=== PATIENT | female | born 1970 | race Asian ===

== ENCOUNTER → 2017-12-30 10:55 | Outpatient (CLI) | payer BC, SELFPAY ==
[2017-12-30 11:16] LABS: Bacteria Urine None Seen
[2017-12-30 12:14] LABS: Add Manual Diff / Slide Review NO; Basophils Percent Auto 0.8 % (0-2); Hematocrit 38.1 % (36-46); Hemoglobin 12.8 g/dL (12.0-16.0); Lymphocytes Percent Auto 31.2 % (25-40); Mean Corpuscular HGB Conc 33.7 % (30-36); Mean Corpuscular Hemoglobin 30.5 PG (26-34); Mean Corpuscular Volume 90.5 fL (80-100); Monocytes Percent Auto 7.4 % (3-14); Neutrophils Absolute Auto 3600 /uL (3000-5900); Neutrophils Percent Auto 59.6 % (50-75); Platelet Count 248 X10^3/uL (150-400); Red Blood Cell Count 4.21 X10^6/uL (4.0-5.2); Red Cell Distribution Width 13.2 % (11.6-14.8); White Blood Cell Count 6.1 X10^3/uL (4.5-11.0)
[2017-12-30 12:27] LABS: Appearance Urine UA CLEAR; Bilirubin Urine UA NEGATIVE (NEGATIVE); Color Urine UA YELLOW; Glucose Urine UA NEGATIVE (Normal); Ketones Urine UA NEGATIVE (NEGATIVE); Leukocyte Esterase Urine UA NEGATIVE (NEGATIVE); Nitrite Urine UA Negative (Negative); Occult Blood Urine UA 3+ (Negative); Protein Urine UA NEGATIVE (Negative); Specific Gravity Urine UA 1.015 (1.000-1.035); Urobilinogen Urine UA 0.2 E.U./dL (0.2); pH Urine UA 7.5 (4.5-8.0)
[2017-12-30 12:43] LABS: Culture Indicated Urine Cult Not Indicated; RBC Urine 5-10/HPF (0-5/HPF); WBC Urine 0-1/HPF (0-5/HPF)
[2017-12-30 12:57] LABS: Alanine Aminotransferase 21 IU/L (9-52); Albumin 4.1 g/dL (3.5-5.0); Albumin Globulin Ratio 1.6 (1.0-2.8); Alkaline Phosphatase 46 U/L (38-126); Aspartate Aminotransferase 19 IU/L (14-36); Bilirubin Total 0.4 mg/dL (0.2-1.3); Blood Urea Nitrogen 9 mg/dL (7-17); Calcium 9.3 mg/dL (8.4-10.2); Carbon Dioxide 29 mmol/L (22-32); Chloride 102 mmol/L (98-107); Cholesterol 167 mg/dL (140-199); Estimated Glomerular Filt Rate > 60.0 mL/min (>60); Globulin 2.6 g/dL (1.7-4.1); Glucose 90 mg/dL (70-100); HDL Cholesterol 64 mg/dL (40-60); HEMOLYSIS < 15 (0-50); LDL Cholesterol Calculated 82 mg/dL (<100); Potassium 4.4 mmol/L (3.4-5.1); Sodium 142 mmol/L (137-145); Total Protein 6.7 g/dL (6.3-8.2); Triglycerides 106 mg/dL (35-150)
[2017-12-30 13:17] LABS: TSH w/ Reflex to FT4 1.84 uIU/mL (0.47-4.68)
== END ==
PROVIDERS: Visit Provider Nurse Practitioner Family
DX: Z00.00 Encounter for general adult medical examination without abnormal findings (principal)
CPT/HCPCS: 36415; 80053; 80061; 81001; 84443; 85025

== ENCOUNTER → 2018-01-31 09:13 | Outpatient (CLI) | payer BC, SELFPAY ==
--- NOTE | 2018-01-31 09:14 | DI.MG.S_ITS ---
BILATERAL DIGITAL SCREENING MAMMOGRAM 3D/2D WITH CAD: 01/31/2018 CLINICAL: Routine screening. Family history of breast cancer. Comparison is made to exams dated: 09/26/2015 mammogram, 02/10/2014 mammogram, and 02/05/2013 mammogram - [facility]. The tissue of both breasts is extremely dense, which lowers the sensitivity of mammography. Current study was also evaluated with a Computer Aided Detection (CAD) system. There is an irregular mass in the right breast at 6 o'clock anterior depth. No other significant masses, calcifications, or other findings are seen in either breast. IMPRESSION: INCOMPLETE: NEEDS ADDITIONAL IMAGING EVALUATION The irregular mass in the right breast is indeterminate. Additional views with possible ultrasound are recommended. This exam was interpreted at Station ID: [id number]. NOTE: For mammograms, a report in lay terms will be sent to the patient. Approximately 15% of breast malignancies will not be visualized mammographically. In the management of a palpable breast mass, a negative mammogram must not discourage biopsy of a clinically suspicious lesion. Electronically Signed By: Marychuy Daniel M.D. lk/:02/02/2018 15:03:53 letter sent: Additional Imaging Needed ACR BI-RADS Category 0: Incomplete 3340F
== END ==
PROVIDERS: Family Provider Family Medicine; PCP Family Medicine; Visit Provider Nurse Practitioner Family
DX: Z12.31 Encounter for screening mammogram for malignant neoplasm of breast (principal); Z80.3 Family history of malignant neoplasm of breast
CPT/HCPCS: 77063; 77067

== ENCOUNTER → 2018-03-16 09:25 | Outpatient (CLI) | payer BC, SELFPAY ==
--- NOTE | 2018-03-16 09:28 | DI.MG.S_ITS ---
UNILATERAL RIGHT DIGITAL DIAGNOSTIC MAMMOGRAM 3D/2D WITH ADDITIONAL VIEWS: 03/16/2018 CLINICAL: Additional evaluation requested from prior study. Comparison is made to exams dated: 01/31/2018 mammogram, 09/26/2015 mammogram, and 02/10/2014 mammogram - [facility]. The tissue of right breast is extremely dense, which lowers the sensitivity of mammography. Previously identified mass in the right breast at 6 o'clock anterior depth on comparison screening mammograms persists with additional views. The mass was described as irregular on comparison screening mammogram but has a more oval circumscribed morphology on today's exam. The mass measures 1.1 cm in greatest diameter and localizes to the 6-7 o'clock position. No other significant masses, calcifications, or other findings are seen in the breast. IMPRESSION: INCOMPLETE: NEEDS ADDITIONAL IMAGING EVALUATION Previously identified mass in the inferior right breast persists with additional views. A targeted ultrasound is recommended for further evaluation, and will be performed immediately following this exam. This exam was interpreted at Station ID: [id number]. NOTE: For mammograms, a report in lay terms will be sent to the patient. Approximately 15% of breast malignancies will not be visualized mammographically. In the management of a palpable breast mass, a negative mammogram must not discourage biopsy of a clinically suspicious lesion. Electronically Signed By: Girish Perdomo M.D. ecl/:03/16/2018 09:57:52 letter sent: Additional Imaging Needed ACR BI-RADS Category 0: Incomplete 3340F
--- NOTE | 2018-03-16 09:28 | DI.US.S_ITS ---
LIMITED ULTRASOUND OF RIGHT BREAST: 03/16/2018 CLINICAL: Patient returns today to evaluate a density in the right breast. Comparison is made to exams dated: 03/16/2018 mammogram, 01/31/2018 mammogram, 09/26/2015 mammogram, and 02/10/2014 mammogram - [facility]. Real-time and Doppler ultrasound of the right breast lower outer quadrant were performed. Perez scale images of the real-time examination were reviewed. There is a 0.9 x 0.8 x 0.4 cm oval circumscribed anechoic cyst with with internal echogenic foci, increased through transmission, and no vascularity on Doppler ultrasound located in the right breast at 6:30 position 2 cm from the nipple. This appears to correlate with the finding seen on mammography. IMPRESSION: BENIGN 0.9 cm benign complicated cyst in the right breast at 6:30 position 2 cm from the nipple, which appears to correlate with the finding seen on mammography. There is no sonographic evidence of malignancy in the imaged portions of the right breast. Return to annual mammogram screening schedule is recommended. The patient is advised to monitor her breasts and to return sooner for re-evaluation should she feel anything grow or change. This exam was interpreted at Station ID: [id number]. Electronically Signed By: Girish Perdomo M.D. ecl/:03/16/2018 10:23:15 letter sent: Normal Exam Ultrasound BI-RADS: 2 Benign
== END ==
PROVIDERS: Visit Provider Family Medicine
DX: R92.8 Other abnormal and inconclusive findings on diagnostic imaging of breast (principal); N60.01 Solitary cyst of right breast
CPT/HCPCS: 76642; 77065; G0279

== ENCOUNTER → 2019-11-27 08:32 | Outpatient (CLI) | payer OTHER, SELFPAY ==
[2019-11-27 09:19] LABS: Add Manual Diff / Slide Review NO; Basophils Absolute Auto 0 /uL (0-100); Basophils Percent Auto 0.6 % (0-2); Eosinophils Absolute Auto 100 /uL (0-450); Eosinophils Percent Auto 1.4 % (2-4); Hematocrit 40.5 % (36-46); Hemoglobin 13.3 g/dL (12.0-16.0); Lymphocytes Absolute Auto 1900 /uL (1100-4500); Lymphocytes Percent Auto 36.4 % (25-40); Mean Corpuscular HGB Conc 32.7 % (30-36); Mean Corpuscular Hemoglobin 29.7 PG (26-34); Mean Corpuscular Volume 90.9 fL (80-100); Monocytes Absolute Auto 400 /uL (0-900); Monocytes Percent Auto 7.1 % (3-14); Neutrophils Absolute Auto 2900 /uL (1500-7000); Neutrophils Percent Auto 54.5 % (50-75); Platelet Count 256 X10^3/uL (150-400); Red Blood Cell Count 4.46 X10^6/uL (4.0-5.2); Red Cell Distribution Width 13.4 % (11.6-14.8); White Blood Cell Count 5.2 X10^3/uL (4.5-11.0)
[2019-11-27 09:26] LABS: Prothrombin Time 11.4 SECONDS (10.1-12.7)
[2019-11-27 09:42] LABS: Alanine Aminotransferase 20 IU/L (<35); Albumin 4.3 g/dL (3.5-5.0); Albumin Globulin Ratio 1.4 (1.0-2.8); Alkaline Phosphatase 61 U/L (38-126); Aspartate Aminotransferase 23 IU/L (14-36); BUN Creatinine Ratio 19.1 (6-22); Bilirubin Total 0.4 mg/dL (0.2-1.3); Blood Urea Nitrogen 13 mg/dL (7-17); Calcium 9.3 mg/dL (8.4-10.2); Carbon Dioxide 30 mmol/L (22-32); Chloride 104 mmol/L (98-107); Cholesterol 209 mg/dL (140-199); Estimated Glomerular Filt Rate > 60.0 mL/min (>60); Glucose 97 mg/dL (70-100); HDL Cholesterol 68 mg/dL (40-60); HEMOLYSIS < 15 (0-50); LDL Cholesterol Calculated 116 mg/dL (<100); Potassium 4.1 mmol/L (3.4-5.1); Sodium 138 mmol/L (137-145); Total Protein 7.3 g/dL (6.3-8.2); Triglycerides 124 mg/dL (35-150)
== END ==
PROVIDERS: Referring Provider Registered Nurse; Visit Provider Registered Nurse
DX: R23.8 Other skin changes (principal); E78.5 Hyperlipidemia, unspecified
CPT/HCPCS: 36415; 80053; 80061; 85025; 85610

== ENCOUNTER → 2019-12-04 08:23 | Outpatient (CLI) | payer OTHER, SELFPAY ==
--- NOTE | 2019-12-04 08:35 | DI.MG.S_ITS ---
Patient Name: LEYDI RAMIRES date: 1970 Sex: F Attending Physician: Amalia Herman Indications: Date: 12/04/2019 08:28 At the request of: BALBIR BUBSY Procedure: MM screening mammo BI BILATERAL DIGITAL SCREENING MAMMOGRAM 3D/2D WITH CAD: 12/04/2019 CLINICAL: Routine screening. Family history of breast cancer. Comparison is made to exams dated: 03/16/2018 mammogram, 01/31/2018 mammogram, 09/26/2015 mammogram, and 03/16/2018 [facility]. The tissue of both breasts is extremely dense, which lowers the sensitivity of mammography. Current study was also evaluated with a Computer Aided Detection (CAD) system. There is a stable benign cyst in the right breast. No significant masses, calcifications, or other findings are seen in either breast. There has been no significant interval change. IMPRESSION: BENIGN There is no mammographic evidence of malignancy. A 1 year screening mammogram is recommended. This exam was interpreted at Station ID: [id number]. NOTE: For mammograms, a report in lay terms will be sent to the patient. Approximately 15% of breast malignancies will not be visualized mammographically. In the management of a palpable breast mass, a negative mammogram must not discourage biopsy of a clinically suspicious lesion. Electronically Signed By: Ryan mcknight/aura:12/06/2019 08:43:34 letter sent: Normal Exam ACR BI-RADS Category 2: Benign Finding(s) 3342F
== END ==
PROVIDERS: Referring Provider Registered Nurse; Visit Provider Registered Nurse
DX: Z12.31 Encounter for screening mammogram for malignant neoplasm of breast (principal); Z80.3 Family history of malignant neoplasm of breast
CPT/HCPCS: 77063; 77067

== ENCOUNTER → 2021-05-18 11:05 | Outpatient (CLI) | payer BC, SELFPAY ==
--- NOTE | 2021-05-18 | DI.MG.S_ITS ---
BILATERAL DIGITAL SCREENING MAMMOGRAM 3D/2D WITH CAD: 05/18/2021 CLINICAL: Routine screening. Family history of breast cancer. Comparison is made to exams dated: 12/04/2019 mammogram, 01/31/2018 mammogram, and 09/26/2015 mammogram - [facility]. The tissue of both breasts is extremely dense, which lowers the sensitivity of mammography. Current study was also evaluated with a Computer Aided Detection (CAD) system. There is a stable benign cyst in the right breast. No significant masses, calcifications, or other findings are seen in either breast. There has been no significant interval change. IMPRESSION: BENIGN There is no mammographic evidence of malignancy. A 1 year screening mammogram is recommended. This exam was interpreted at Station ID: [id number]. NOTE: For mammograms, a report in lay terms will be sent to the patient. Approximately 15% of breast malignancies will not be visualized mammographically. In the management of a palpable breast mass, a negative mammogram must not discourage biopsy of a clinically suspicious lesion. Electronically Signed By: Ramo linder/aura:05/18/2021 15:23:49 letter sent: Normal Exam ACR BI-RADS Category 2: Benign Finding(s) 3342F
== END ==
PROVIDERS: Referring Provider Student in an Organized Health Care Education/Training Program; Visit Provider Student in an Organized Health Care Education/Training Program
DX: Z12.31 Encounter for screening mammogram for malignant neoplasm of breast (principal); Z80.3 Family history of malignant neoplasm of breast
CPT/HCPCS: 77063; 77067

== ENCOUNTER → 2021-08-01 11:07 | Outpatient (CLI) | payer BC, SELFPAY ==
[2021-08-01 13:53] LABS: COVID19 -Nasal RAPID Negative (Negative)
== END ==
PROVIDERS: Visit Provider Family Medicine Sleep Medicine
DX: Z20.822 Contact with and (suspected) exposure to COVID-19 (principal)
CPT/HCPCS: 87635; C9803

== ENCOUNTER 2021-08-03 14:56 | Day surgery (SDC) | payer BC, SELFPAY ==
--- NOTE | 2021-08-03 12:44 | P.HP_ITS ---
History of Present Illness History of Present Illness Date Patient Seen: 08/03/21 [place] [facility] [place] [facility] [place] 51 Years Old Female seen today for consideration of a screening colonoscopy. There have been no lower GI symptoms suggesting disease such as change in bowel habits, bleeding, abdominal pain or anemia. There's been no family history of colon cancer or colon polyps. Overall health issues have been stable, including no major cardiac events for at least 6 weeks. Also requesting for Pap smear to be completed under sedation prior to colonoscopy. Past Medical History: Inflammation of lymphatics: Past Surgical History: left breast biopsy Family History: Father: HTN, Hyperlipidemia Mother: HTN, Diabetes, Hyperlipidemia Siblings: HTN, hyperlipidemia, possibly colon polyps Social History: Reviewed history from 05/10/2021 and no changes required: Marital Status: Single Children: Occupation: [employer]ist [employer] Members: Education: Patient History Surgical History Anesthesia History of left breast biopsy Family & Social History Family History Brother Age: 61 High cholesterol Father Age: 87 Hypertension High cholesterol Mother Age: 87 Diabetes mellitus Sister Age: 56 Cancer Sister Age: 51 High cholesterol Hypertension Grandfather Liver disease Grandmother No problems noted. Grandfather No problems noted. Grandmother No problems noted. Tobacco & Substance use: Smoking Status Never smoker Meds Home Medications and Allergies Allergies Allergy/AdvReac Type Severity Reaction Status Date / Time No Known Drug Allergies Allergy Verified 08/03/21 15:13 Review of Systems Review of Systems Narrative: All remaining ROS were reviewed and negative except as addressed. Exam Narrative Exam Narrative: GENERAL: Alert and oriented, appearing stated age and in no acute distress. HEENT: Head normocephalic/atraumatic. Extraocular movements intact. LUNGS: Clear to ausculation bilaterally, no wheezes, rhonchi or rales. CV: Normal S1 and S2 with regular rate and rhythm, no audible murmurs, rubs or gallops. ABDOMEN: Soft, non-tender, non-distended, no organomegaly. Positive bowel sounds. EXTREMITIES: No clubbing, cyanosis, or edema. NEURO: Cranial nerves II through XII grossly intact, no focal deficits. PSYCH: Alert and oriented x 3. SKIN: No concerning lesions. Assessment & Plan Assessment & Plan narrative: 1. Screening for colon cancer Plan for colonoscopy. The nature and character of the procedure as well as anticipated results were discussed. The possibility of not completing the procedure was also discussed. Possible complications including aspiration pneumonia, bleeding, perforation and reaction to medications either for sedation or preparation and missed lesions were discussed. Questions were answered and proceeding to the colonoscopy was elected. Informed consent signed. 2. Screening for cervical cancer Plan: Pap smear + HPV DNA with reflex to genotype 16/18 if high risk HPV DNA.
--- NOTE | 2021-08-03 12:48 | PM.OP.COLON ---
Operative Date/Time/Diagnoses Date of procedure: 08/03/21 Procedure Notes SCOAP/Timeout: 4:18 p.m. Procedure in detail: ENDOSCOPIST: Eva Forrest MD Sedation RN: Claudia Ramos RN Sedation start time: 4:19 p.m. Sedation end time: 4:58 p.m. PROCEDURE: Colonoscopy and pap smear INDICATIONS: 1. Screening for colon cancer 2. Screening for cervical cancer MEDICATION: Levsin 0.125 mg sublingual, incremental doses of Versed and fentanyl until appropriate level of sedation achieved. ASA CLASS: 2 CECAL WITHDRAWAL TIME: 12 minutes COMPLICATIONS: None. EXTENT OF PROCEDURE: Cecum. QUALITY OF PREP: Good with portions of liquid stool. PROCEDURE: Prior to insertion of the colonoscope, a pap smear was peformed. Normal female external genitalia, Paramjit stage V. Vaginal mucosa dry, introitus stenotic, pediatric speculum required. Otherwise, decreased rugations. Cervix friable, Pap smear plus HPV DNA obtained. Bimanual exam revealed no adnexal masses or tenderness. Attention was then turned to the colonoscopy. A digital rectal examination was accomplished with circumferential palpation of the distal rectal mucosa without significant findings being noted. The high-definition pediatric colonoscope was passed into the rectum in the usual fashion and advanced over to the cecum without difficulty. The ileocecal valve, appendiceal stoma, and medial wall all could be inspected and no abnormalities were seen. ASCENDING COLON: As the colonoscope was withdrawn, care was taken to expose and inspect the haustral folds and no abnormalities were seen. HEPATIC FLEXURE: Normal, no polyps, diverticula or other abnormalities. TRANSVERSE COLON: Normal, no polyps, diverticula or other abnormalities. DESCENDING COLON: Normal, no polyps, diverticula or other abnormalities. SIGMOID COLON: Normal, no polyps, diverticula or other abnormalities. RECTUM: Normal. J maneuver was produced. There was no significant perianal disease. The J maneuver was broken. The remainder of the rectum was inspected and there was no external hemorrhoid disease. The scope was withdrawn. IMPRESSION: 1. Normal colonoscopy 2. Stenotic vaginal introitus, postmenopausal atrophic vaginitis with friable cervix PLAN: 1. Repeat colonoscopy in 10 years. 2. Will call patient with Pap smear results. The possibility of a missed lesion including a malignancy has been discussed with the patient previously. Potential alarm symptoms have been discussed and should be reported immediately.
[2021-08-03] MEDS: HYOSCYAMINE 0.125 MG TABLET PO (15:17)
[2021-08-03 15:18] VITALS: BMI 20.1
[2021-08-03] MEDS: LACTATED RINGERS 1,000 ML 200 ML IV (15:18)
[2021-08-03 15:24] VITALS: BP 130/80; PULSE 100; RESP 12; TEMP 36.8; O2SAT 99
[2021-08-03] MEDS: MIDAZOLAM 5 MG/5 ML VIAL 9 MG IV (17:02)
[2021-08-03] MEDS: fentaNYL 250 MCG/5 ML INJ 225 MCG IV (17:02)
[2021-08-03 17:15] VITALS: BP 120/63; PULSE 86; RESP 12; TEMP 36.6; O2SAT 99
[2021-08-03 17:20] VITALS: BP 101/67; PULSE 95; RESP 13; O2SAT 98
[2021-08-03 17:25] VITALS: BP 104/60; PULSE 89; RESP 13; O2SAT 99
[2021-08-03 17:30] VITALS: BP 104/63; PULSE 85; RESP 12; TEMP 36.9; O2SAT 99
[2021-08-03 17:33] VITALS: BP 105/57; PULSE 93; RESP 12; O2SAT 98
== END 2021-08-03 17:49 | disposition home or self-care (01) ==
PROVIDERS: PCP Student in an Organized Health Care Education/Training Program; Referring Provider Student in an Organized Health Care Education/Training Program; Visit Provider Student in an Organized Health Care Education/Training Program
PROC: 0DJD8ZZ Inspection of Lower Intestinal Tract, Via Natural or Artificial Opening Endoscopic (ICD-10-PCS; CPT 45378; principal; 2021-08-03 16:00)
DX: Z12.11 Encounter for screening for malignant neoplasm of colon (principal); Z12.4 Encounter for screening for malignant neoplasm of cervix
CPT/HCPCS: 45378; J2250; J3010

== ENCOUNTER → 2022-05-20 09:47 | Outpatient (CLI) | payer BC, SELFPAY ==
--- NOTE | 2022-05-20 09:49 | DI.MG.S_ITS ---
BILATERAL DIGITAL SCREENING MAMMOGRAM 3D/2D WITH CAD: 05/20/2022 CLINICAL: Routine screening. Family history of breast cancer. Comparison is made to exams dated: 05/18/2021 mammogram, 12/04/2019 mammogram, and 01/31/2018 mammogram - [facility]. Both breasts are extremely dense, which lowers the sensitivity of mammography (category d />75% glandular tissue). Current study was also evaluated with a Computer Aided Detection (CAD) system. There are benign post operative findings in the left breast. No significant masses, calcifications, or other findings are seen in either breast. There has been no significant interval change. IMPRESSION: BENIGN There is no mammographic evidence of malignancy. A 1 year screening mammogram is recommended. Based on Tyrer-Cuzick model (a risk assessment model), the patient's lifetime risk is 38.2% and her 10 year risk is 12.4%. If a patient has an elevated risk, a more comprehensive evaluation should be considered and/or a referral to a genetic counselor. The [employer], [employer], and NCCN Guidelines advise the consideration of Breast MRI as an adjunct to screening mammography in patients whose Lifetime risk to develop breast cancer is 20% or higher. This exam was interpreted at Station ID: [id number]. NOTE: For mammograms, a report in lay terms will be sent to the patient. Approximately 15% of breast malignancies will not be visualized mammographically. In the management of a palpable breast mass, a negative mammogram must not discourage biopsy of a clinically suspicious lesion. Electronically Signed By: Eamon fulton/aura:05/20/2022 10:56:21 letter sent: Normal Exam ACR BI-RADS Category 2: Benign Finding(s) 3342F
== END ==
PROVIDERS: PCP Student in an Organized Health Care Education/Training Program; Referring Provider Family Medicine; Visit Provider Family Medicine
DX: Z12.31 Encounter for screening mammogram for malignant neoplasm of breast (principal); Z80.3 Family history of malignant neoplasm of breast
CPT/HCPCS: 77063; 77067

== ENCOUNTER → 2023-06-03 10:07 | Outpatient (CLI) | payer BC, SELFPAY ==
--- NOTE | 2023-06-03 10:08 | DI.MG.S_ITS ---
BILATERAL DIGITAL SCREENING MAMMOGRAM 3D/2D WITH CAD: 06/03/2023 CLINICAL: Routine screening. Family history of breast cancer. Comparison is made to exams dated: 05/20/2022 mammogram, 05/18/2021 mammogram, and 12/04/2019 mammogram - [facility]. Both breasts are extremely dense, which lowers the sensitivity of mammography (category d />75% glandular tissue). Current study was also evaluated with a Computer Aided Detection (CAD) system. There are benign post operative findings in the left breast. No significant masses, calcifications, or other findings are seen in either breast. There has been no significant interval change. IMPRESSION: BENIGN There is no mammographic evidence of malignancy. A 1 year screening mammogram is recommended. Based on Tyrer-Cuzick model (a risk assessment model), the patient's lifetime risk is 37.9% and her 10 year risk is 13.0%. If a patient has an elevated risk, a more comprehensive evaluation should be considered and/or a referral to a genetic counselor. The [employer], [employer], and NCCN Guidelines advise the consideration of Breast MRI as an adjunct to screening mammography in patients whose Lifetime risk to develop breast cancer is 20% or higher. This exam was interpreted at Station ID: [id number]. NOTE: For mammograms, a report in lay terms will be sent to the patient. Approximately 15% of breast malignancies will not be visualized mammographically. In the management of a palpable breast mass, a negative mammogram must not discourage biopsy of a clinically suspicious lesion. Electronically Signed By: Ramo linder/aura:06/03/2023 12:13:45 letter sent: Normal Exam ACR BI-RADS Category 2: Benign Finding(s) 3342F
== END ==
PROVIDERS: PCP Registered Nurse Diabetes Educator; Referring Provider Registered Nurse Diabetes Educator; Visit Provider Registered Nurse Diabetes Educator
DX: Z12.31 Encounter for screening mammogram for malignant neoplasm of breast (principal); Z80.3 Family history of malignant neoplasm of breast; R92.343 Mammographic extreme density, bilateral breasts
CPT/HCPCS: 77063; 77067

== ENCOUNTER → 2023-06-12 08:22 | Outpatient (CLI) | payer BC, SELFPAY ==
[2023-06-12 09:28] LABS: Hematocrit 40.8 % (36-46); Hemoglobin 13.6 g/dL (12.0-16.0); Mean Corpuscular HGB Conc 33.4 % (30-36); Mean Corpuscular Hemoglobin 30.3 PG (26-34); Mean Corpuscular Volume 90.8 fL (80-100); Platelet Count 255 X10^3/uL (150-400); Red Blood Cell Count 4.49 X10^6/uL (4.0-5.2); Red Cell Distribution Width 12.7 % (11.6-14.8); White Blood Cell Count 5.7 X10^3/uL (4.5-11.0)
[2023-06-12 10:07] LABS: Alanine Aminotransferase 19 IU/L (<35); Albumin 4.4 g/dL (3.5-5.0); Albumin Globulin Ratio 1.4 (1.0-2.8); Alkaline Phosphatase 66 U/L (38-126); Aspartate Aminotransferase 26 IU/L (14-36); Bilirubin Total 0.6 mg/dL (0.2-1.3); Blood Urea Nitrogen 12 mg/dL (7-17); Calcium 9.5 mg/dL (8.4-10.2); Carbon Dioxide 31 mmol/L (22-32); Chloride 106 mmol/L (98-107); Cholesterol 175 mg/dL (140-199); Estimated Glomerular Filt Rate > 60 mL/min (>60); Globulin 3.1 g/dL (1.7-4.1); Glucose 87 mg/dL (70-100); HDL Cholesterol 67 mg/dL (40-60); HEMOLYSIS < 15 (0-50); LDL Cholesterol Calculated 93 mg/dL (<100); Potassium 4.8 mmol/L (3.4-5.1); Sodium 143 mmol/L (137-145); Total Protein 7.5 g/dL (6.3-8.2); Triglycerides 73 mg/dL (35-150)
[2023-06-12 10:39] LABS: TSH w/ Reflex to FT4 3.06 uIU/mL (0.47-4.68)
== END ==
PROVIDERS: PCP Registered Nurse Diabetes Educator; Referring Provider Registered Nurse Diabetes Educator; Visit Provider Registered Nurse Diabetes Educator
DX: Z00.00 Encounter for general adult medical examination without abnormal findings (principal); E78.5 Hyperlipidemia, unspecified
CPT/HCPCS: 36415; 80053; 80061; 84443; 85027

== ENCOUNTER → 2024-07-03 | Outpatient (CLI) | payer BC, SELFPAY ==
--- NOTE | 2024-07-03 07:33 | DI.MG.S_ITS ---
MM screening mammo BI: 07/03/2024. BI-RADS: 1 CLINICAL: 54-year old female for bilateral screening mammogram. Tyrer-Cuzick lifetime risk of 21.9%. Current reported family history of breast cancer: sister and maternal aunt's daughter. The patient had a prior left breast biopsy. PRIOR EXAMS 06/03/2023, 05/20/2022, 05/18/2021, 12/04/2019, 03/16/2018, 01/31/2018, 09/26/2015. MAMMOGRAPHY TECHNIQUE: 2D and 3D (tomosynthesis) digital mammographic views obtained, with additional images as needed for full coverage. Current study was also evaluated with a Computer Aided Detection (CAD) system. DENSITY D. The breasts are extremely dense, which lowers the sensitivity of mammography. MAMMOGRAPHY FINDINGS Bilateral: No suspicious mass, asymmetry, microcalcification, or other abnormality seen. No significant change from comparison. IMPRESSION: * No evidence of malignancy. RECOMMENDATIONS Bilateral * According to the Tyrer-Cuzick Risk Assessment Model, based on the information provided your patient has a greater than 20% lifetime risk for developing breast cancer. Consider supplemental screening with breast MRI and participation in a high risk screening program. * Annual screening mammography. OVERALL ASSESSMENT CATEGORY BI-RADS-1: Negative. The [employer] recommends annual screening mammography beginning at age 40 for women with average risk of breast cancer. ELECTRONICALLY SIGNED: Ofelia Luna M.D. on 07/05/2024 at 09:02:34 AM PT Interpreting Station ID: [id number]
== END ==
LOC: MAMMO 07:33
PROVIDERS: PCP Registered Nurse Diabetes Educator; Referring Provider Registered Nurse Diabetes Educator; Visit Provider Registered Nurse Diabetes Educator
DX: Z12.31 Encounter for screening mammogram for malignant neoplasm of breast (principal); Z80.3 Family history of malignant neoplasm of breast; R92.343 Mammographic extreme density, bilateral breasts
CPT/HCPCS: 77063; 77067